=== PATIENT | female | born 1985 | race Caucasian/White ===

== ENCOUNTER 2016-06-03 16:45 | Emergency (ER) | payer SELFPAY ==
--- NOTE | 2016-06-16 03:57 | ER ---
ADMIT: 06/03/2016 RM/LOC: ER [facility] MR#: [id number] [address] [id number] [place] [address] Emergency Room Report SEX: F AGE: 30 : 1985 DATE: 06/03/2016 CHIEF COMPLAINT: Toothache. HISTORY OF PRESENT ILLNESS: A pleasant 30-year-old female, presents with a family member for evaluation of tooth pain. The patient states she had a crown fall off one of her upper right maxillary teeth about a week ago. She has been using Tylenol and ibuprofen to control the pain. However, earlier today, she was biting into a hot sandwich when she had excruciating pain. She states pain has been unrelieved with Tylenol and ibuprofen. She does have a history of poor dentition, does not currently see a dentist. States she is having difficulty getting in to see a dentist. Admits to some congestion and facial pain. Denies any fevers, chills, sore throat, cough, earache, or swollen glands. COURSE IN EMERGENCY ROOM: Patient seen and examined. Significant for fractured tooth #4. No evidence of any extending infection. I did inject this with bupivacaine with epi for pain control. She states this did help with some of her pain. I told her that she needs to see a dentist as soon as possible to have this issue addressed. IMPRESSION: Tooth #4 fracture. DISPOSITION: The patient was encouraged to follow up with a dentist as soon as possible. She was given a script for Perry 5/325 one to two tabs every 4-6 hours as needed for pain #20 as well as clindamycin 300 mg p.o. t.i.d. x5 days. I stressed the urgency in seeing a dentist because this pain is not likely to get better without dental intervention. She can apply ice to the upper jaws as needed for pain. She can use ibuprofen as needed for pain. She was encouraged to avoid Tylenol while using the Perry and also to avoid driving, operating machinery or making other important decision while using narcotic medications. Questions were sought and answered to the best of my ability and the patient's satisfaction. She was discharged from the department to follow up with dentist as soon as possible in stable condition. JESUS Null / Benjy Clayton MD / antonieta JOB #: [id number] CC: Segundo Soni MD, Attending Physician UNKNOWN, Family Physician
== END 2016-06-03 17:28 | disposition home or self-care (01) ==
LOC: ER 16:45
PROC: 3E0T3BZ Introduction of Anesthetic Agent into Peripheral Nerves and Plexi, Percutaneous Approach (ICD-10-PCS; principal; 2016-06-03)
DX: S02.5XXA Fracture of tooth (traumatic), initial encounter for closed fracture (principal); F17.200 Nicotine dependence, unspecified, uncomplicated; Z88.5 Allergy status to narcotic agent; Z79.899 Other long term (current) drug therapy